=== PATIENT | male | born 1980 | race Caucasian/White ===

== ENCOUNTER 2017-05-12 21:51 | Emergency (ER) | payer MEDICAID, OTHER ==
[2017-05-12 22:06] VITALS: BP 137/95
--- NOTE | 2017-05-12 22:09 | ED Physician Documentation ---
PD HPI LOWER EXT INJURY - Stated complaint Stated Complaint: R FOOT PAIN - Chief complaint Chief Complaint: Ext Problem - History obtained from History obtained from: Patient - History of Present Illness PD HPI LOW EXT INJURY LOCATION: Right, Ankle (heel focally) Type of injury: Other (no unusual level of activity with feet/ankles in past few days.). No: Fall, Twist, Blunt / blow Timing - onset: Today Timing - details: Abrupt onset, Still present Worsened by: Palpating Associated symptoms: Discolored (some mild redness). No: Weakness, Numbness Similar symptoms before: No diagnosis (had similar about 5 weeks ago, not seen by provider and it took about 5-7 days to fully go away. Also no noted injury at that time with it either.) Review of Systems Constitutional: denies: Fever, Chills Skin: denies: Lesions, Abrasion (s), Laceration (s) Musculoskeletal: denies: Back pain PD PAST MEDICAL HISTORY - Past Medical History Cardiovascular: None Endocrine/Autoimmune: None Musculoskeletal: None Derm: None - Past Surgical History Past Surgical History: No - Present Medications Home Medications: Ambulatory Orders Medication Instructions Recorded Confirmed Dexamethasone [Decadron] 4 mg PO DAILY #5 tablet 05/12/17 HYDROcod/ACETAM 5/325 [[place] 5/325] 1 tab PO Q6H PRN #20 tablet 05/12/17 Naproxen [Naprosyn] 500 mg PO BID #20 tablet 05/12/17 - Allergies Allergies/Adverse Reactions: Allergies Allergy/AdvReac Type Severity Reaction Status Date / Time No Known Drug Allergies Allergy Verified 05/12/17 22:06 - Social History Does the pt smoke?: No Smoking Status: Never smoker Does the pt drink ETOH?: No PD ED PE NORMAL - Vitals Vital signs reviewed: Yes - General General: Alert and oriented X 3, No acute distress, Well developed/nourished - Derm Derm: Normal color, Warm and dry - Extremities Extremities: Other (right heel posteriorly with focal marked tenderness. Mild redness without warmth. No skin sores. Plantar aspect of foot/heel not tender. Calf not tender. ) - Neuro Neuro: No motor deficit, No sensory deficit Results - Vitals Vitals: Vital Signs - 24 hr 05/12/17 22:00 Temperature 36.3 C L Heart Rate 84 Respiratory 84 H Rate Blood Pressure 137/95 H O2 Saturation 97 Oxygen O2 Source Room air - Labs Labs: Laboratory Tests 05/12/17 05/12/17 22:58 22:58 ESR 5 Uric Acid 7.7 H - Rads (name of study) right ankle Radiology: Prelim report reviewed (normal), EMP read contemporaneously (small calcific spur noted posterior calcaneus in area of tenderness. ) PD MEDICAL DECISION MAKING - ED course Complexity details: reviewed results (small spur at back of heel on xray, so could be triggering tendonitis. Area is markedly tender with mild redness. So consider gout. Does not appear infection. ), considered differential, d/w patient Departure - Departure Disposition: 01 Home, Self Care Clinical Impression: Pain of right heel Condition: Stable Record reviewed to determine appropriate education?: Yes Instructions: ED Tendinitis Calcific, ED Arthritis Gout Follow-Up: [facility] [place], [place] [Provider Group] [facility] [Provider Group] [facility] [Provider Group] Prescriptions: Dexamethasone [Decadron] 4 mg PO DAILY #5 tablet Naproxen [Naprosyn] 500 mg PO BID #20 tablet HYDROcod/ACETAM 5/325 [[place] 5/325] 1 tab PO Q6H PRN #20 tablet PRN Reason: Pain Comments: There is a small spur at the area where you are hurting, and this could promote episodic tendinitis. Your uric acid level blood test is slightly above normal and so could consider the idea of gout. The heel is not a common place for gout but still potential. For now use naproxen twice daily for the next 7 days. Add dexamethasone daily for 5 days. Additionally use Tylenol or hydrocodone as needed for pain. Modify activity as needed for comfort. Recheck if not improving over the next few days. I gave a couple of clinic numbers down in the [place] area. You could also consult a foot and ankle specialist regarding the spurs. Discharge Date/Time: 05/12/17 23:58
[2017-05-12] MEDS ORDERED: oxyCOD/ACETAMIN 5 MG/325 MG TABLET PO STA (22:37)
[2017-05-12] MEDS ORDERED: IBUPROFEN 600 MG TABLET PO STA (22:37)
[2017-05-12] MEDS ORDERED: DEXAMETHASONE 10 MG/ML VIAL PO STA (22:37)
--- NOTE | 2017-05-12 23:23 | XRAY Preliminary Report ---
Exam: XR Ankle 3 View RT IMPRESSION: Normal ankle radiography. [facility] SITE ID: [id number]
--- NOTE | 2017-05-12 23:25 | XRAY Report ---
EXAM: RIGHT ANKLE RADIOGRAPHY EXAM DATE: 05/12/2017 11:00 PM. CLINICAL HISTORY: Heel pain for 1-2 days. COMPARISON: None. TECHNIQUE: 3 views. FINDINGS: Bones: Normal. No fractures or bone lesions. Joints: Normal. No effusion. No subluxations. The ankle mortise is normally aligned. Soft Tissues: Normal. No soft tissue swelling. IMPRESSION: Normal ankle radiography. [facility] Referring Provider Line: [phone] SITE ID: [id number]
[2017-05-12] MEDS ORDERED: oxyCOD/ACETAMIN 5 MG/325 MG TABLET PO ONE (23:26)
[2017-05-12] MEDS ORDERED: DEXAMETHASONE 10 MG/ML VIAL ONE (23:26)
[2017-05-12] MEDS ORDERED: IBUPROFEN 600 MG TABLET PO ONE (23:27)
[2017-05-12] MEDS ORDERED: CHERRY SYRUP 10 ML UDC PO ONE (23:27)
== END 2017-05-12 23:58 | disposition home or self-care (01) ==
LOC: ED 21:51
DX: M79.671 Pain in right foot (principal); M77.51 Other enthesopathy of right foot and ankle
CPT/HCPCS: 36415; 73610; 84550; 85651; 99283; A9270

== ENCOUNTER 2017-10-06 18:07 | Emergency (ER) | payer MEDICAID ==
[2017-10-06] MEDS ORDERED: OSELTAMIVIR 75 MG CAPSULE PO STA (19:02)
--- NOTE | 2017-10-06 19:04 | ED Physician Documentation ---
PD HPI URI - Stated complaint Stated Complaint: FLU LIKE SYMPTOMS - Chief complaint Chief Complaint: Resp - History obtained from History obtained from: Patient - History of Present Illness Timing - onset: Other (A little over 24 hours of rhinorrhea, fevers, body aches , productive cough. His daughter also has influenza A diagnosed today. No recent travel.) Review of Systems Constitutional: reports: Fever, Chills, Myalgias, Fatigue Ears: denies: Ear pain Nose: reports: Rhinorrhea / runny nose. denies: Sinus pressure / pain Throat: reports: Sore throat Respiratory: reports: Cough. denies: Dyspnea PD PAST MEDICAL HISTORY - Past Medical History Cardiovascular: None Endocrine/Autoimmune: None Musculoskeletal: None Derm: None - Past Surgical History Past Surgical History: No - Present Medications Home Medications: Ambulatory Orders Medication Instructions Recorded Confirmed Dexamethasone [Decadron] 4 mg PO DAILY #5 tablet 05/12/17 HYDROcod/ACETAM 5/325 [[place] 5/325] 1 tab PO Q6H PRN #20 tablet 05/12/17 Naproxen [Naprosyn] 500 mg PO BID #20 tablet 05/12/17 Ibuprofen [Motrin] 800 mg PO Q8H PRN #30 tablet 10/06/17 Oseltamivir [Tamiflu] 75 mg PO BID #10 capsule 10/06/17 - Allergies Allergies/Adverse Reactions: Allergies Allergy/AdvReac Type Severity Reaction Status Date / Time No Known Drug Allergies Allergy Verified 05/12/17 22:06 - Social History Does the pt smoke?: No Smoking Status: Never smoker Does the pt drink ETOH?: No Does the pt have substance abuse?: No - Immunizations Immunizations are current?: Yes - POLST Patient has POLST: No PD ED PE NORMAL - Vitals Vital signs reviewed: Yes - General General: Alert and oriented X 3, No acute distress - HEENT HEENT: PERRL, EOMI, Ears normal, Moist mucous membranes, Pharynx benign - Neck Neck: Supple, no meningeal sign, No bony TTP - Cardiac Cardiac: RRR, No murmur - Respiratory Respiratory: No respiratory distress, Clear bilaterally - Derm Derm: No rash - Neuro Neuro: Alert and oriented X 3, Normal speech Results - Vitals Vitals: Vital Signs - 24 hr 10/06/17 18:11 Temperature 37.0 C Heart Rate 110 H Respiratory 16 Rate Blood Pressure 123/85 H O2 Saturation 96 Oxygen O2 Source Room air - Labs Labs: Laboratory Tests 10/06/17 18:30 Influenza A (Rapid) POSITIVE H Influenza B (Rapid) Negative Influenza Types A,B Ag + H Departure - Departure Disposition: 01 Home, Self Care Clinical Impression: Influenza A Condition: Good Record reviewed to determine appropriate education?: Yes Instructions: Medication: Tamiflu (Oseltamivir), ED Flu Prescriptions: Ibuprofen [Motrin] 800 mg PO Q8H PRN #30 tablet PRN Reason: PAIN &/OR FEVER Oseltamivir [Tamiflu] 75 mg PO BID #10 capsule Comments: Call your doctor to arrange a follow-up appointment, make the next available appointment. In the interim, return anytime if worse or if new symptoms develop. Your blood pressure was elevated today on check into the emergency department. This does not mean that you have hypertension, it is a common phenomenon to come to the emergency department and have elevated blood pressure. I recommend that you see your primary care physician within the week to have it rechecked when you are feeling better.
[2017-10-06 19:08] VITALS: BP 143/95
== END 2017-10-06 19:12 | disposition home or self-care (01) ==
LOC: ED 18:07
DX: J09.X2 Influenza due to identified novel influenza A virus with other respiratory manifestations (principal); R03.0 Elevated blood-pressure reading, without diagnosis of hypertension
CPT/HCPCS: 87275; 87276; 99283; A9270

== ENCOUNTER 2018-09-05 11:24 | Outpatient (CLI) | payer MEDICAID ==
[2018-09-05 18:55] LABS: BASOPHILS % (AUTO) 0.7 %; EOSINOPHILS # (AUTO) 0.1 10^3/uL (0.0-0.7); EOSINOPHILS % (AUTO) 2.2 %; HGB - HEMOGLOBIN 16.3 g/dL (14.0-18.0); LYMPHOCYTES # (AUTO) 1.7 10^3/uL (1.5-3.5); MEAN CORPUSCULAR HEMOGLOBIN 29.8 pg (27.0-31.0); MEAN CORPUSCULAR HGB CONC 32.7 g/dL (32.0-36.0); MEAN CORPUSCULAR VOLUME 91.1 fL (80.0-94.0); MEAN PLATELET VOLUME 7.9 fL (7.4-11.4); MONOCYTES # (AUTO) 0.5 10^3/uL (0.0-1.0); MONOCYTES % (AUTO) 7.8 %; NEUTROPHILS # (AUTO) 4.3 10^3/uL (1.5-6.6); NEUTROPHILS % (AUTO) 64.3 %; PLT - PLATELET COUNT 208 10^3/uL (130-450); RED BLOOD COUNT 5.46 10^6/uL (4.70-6.10); RED CELL DISTRIBUTION WIDTH 14.6 % (12.0-15.0); WHITE BLOOD COUNT 6.7 x10^3/uL (4.8-10.8)
[2018-09-05 19:21] LABS: ALBUMIN 4.7 g/dL (3.2-5.5); ALBUMIN/GLOBULIN RATIO 1.4 (1.0-2.2); ALKALINE PHOSPHATASE 145 IU/L (42-121); ALT ALANINE AMINOTRANSFERASE 423 IU/L (10-60); AST ASPARTATE AMINOTRANSFERASE 111 IU/L (10-42); BILIRUBIN,TOTAL 0.9 mg/dL (0.2-1.0); BUN - BLOOD UREA NITROGEN 11 mg/dL (6-20); CALCIUM 9.3 mg/dL (8.5-10.3); CARBON DIOXIDE - CO2 29 mmol/L (21-32); CHLORIDE 102 mmol/L (101-111); CHOLESTEROL 137 mg/dL; CREATININE 1.2 mg/dL (0.6-1.2); GFR - MDRD 68 (>89); GLUCOSE 98 mg/dL (70-100); HDL CHOLESTEROL 45 mg/dL; LDL CHOLESTEROL,CALCULATED 73 mg/dL; LDL/HDL RATIO 1.6 (<3.6); SODIUM 139 mmol/L (135-145); VLDL CHOLESTEROL 19 mg/dL
== END 2018-09-05 11:25 | disposition home or self-care (01) ==
LOC: LAB.N 11:24
PROVIDERS: ATTEND Nurse Practitioner
DX: R03.0 Elevated blood-pressure reading, without diagnosis of hypertension (principal)
CPT/HCPCS: 36415; 80053; 80061; 83721; 85025

== ENCOUNTER 2018-09-19 09:20 | Outpatient (CLI) | payer MEDICAID ==
--- NOTE | 2018-09-19 16:03 | XRAY Report ---
Reason: SHOULDER JOINT PAIN,LEFT AND RIGHT Procedure Date: 09/19/2018 Accession Number: [id number] / [id number] Procedure: XR - Shoulder 3 View BILAT CPT Code: FULL RESULT: Bilateral Shoulder Radiography EXAM DATE: 09/19/2018 09:30 AM. CLINICAL HISTORY: Shoulder joint pain, left and right. COMPARISON: None. TECHNIQUE: 3 views each. FINDINGS: Right: Bones: Normal. No fracture or bone lesion. Joints: The glenohumeral and acromioclavicular joints are normal. Soft tissues: The visualized hemithorax is unremarkable. No soft tissue swelling. Left: Bones: Normal. No fracture or bone lesion. Joints: The glenohumeral and acromioclavicular joints are normal with the exception of mild degenerative changes of the AC joint. Soft tissues: The visualized hemithorax is unremarkable. No soft tissue swelling. IMPRESSION: Mild degenerative changes of the left AC joint, otherwise normal bilateral shoulder radiographs. [facility]
== END 2018-09-19 09:21 | disposition home or self-care (01) ==
LOC: DI 09:20
PROVIDERS: ATTEND Nurse Practitioner
DX: M19.012 Primary osteoarthritis, left shoulder (principal); M25.511 Pain in right shoulder

== ENCOUNTER 2018-10-06 14:54 | Outpatient (CLI) | payer MEDICAID ==
[2018-10-06 19:24] LABS: ALBUMIN 4.6 g/dL (3.2-5.5); ALBUMIN/GLOBULIN RATIO 1.4 (1.0-2.2); BILIRUBIN,TOTAL 0.7 mg/dL (0.2-1.0); CALCIUM 8.9 mg/dL (8.5-10.3); CREATININE 1.1 mg/dL (0.6-1.2)
== END 2018-10-06 23:59 | disposition home or self-care (01) ==
LOC: LAB.N 14:54
PROVIDERS: ATTEND Nurse Practitioner
DX: R79.89 Other specified abnormal findings of blood chemistry (principal)
CPT/HCPCS: 36415; 80053

== ENCOUNTER 2019-01-02 11:58 | Outpatient (CLI) | payer MEDICAID ==
--- NOTE | 2019-01-02 13:28 | XRAY Report ---
REVISED: THIS REPORT WAS ORIGINALLY SIGNED ON 01/02/2019 @ 1330. THE REPORT IS MOVED TO THE CORRECT ACCOUNT ON 02/02/2019. Reason: SHOULDER PAIN Procedure Date: 01/02/2019 Accession Number: [id number] / [id number] Procedure: XRN - Cervical Spine 2 View CPT Code: FULL RESULT: EXAM: CERVICAL SPINE RADIOGRAPHY EXAM DATE: 01/02/2019 12:23 PM. CLINICAL HISTORY: Shoulder pain. COMPARISONS: None. TECHNIQUE: 3 views. FINDINGS: Alignment: Normal. No spondylolisthesis or scoliosis. Bones: The cervical vertebral bodies and posterior elements are well visualized from the skull base through C7-T1. No fractures or bone lesions. Disks: Normal. Disk heights are maintained. Facets: No degenerative disease. Soft Tissues: Normal. No prevertebral soft tissue swelling. The visualized lung apices are clear. IMPRESSION: Normal cervical spine radiography. [facility] MTDD
== END 2019-01-02 23:59 | disposition home or self-care (01) ==
LOC: DI.N 11:58
PROVIDERS: ATTEND Nurse Practitioner
DX: M54.12 Radiculopathy, cervical region (principal)
CPT/HCPCS: 72040

== ENCOUNTER 2019-02-07 10:17 | Outpatient (CLI) | payer MEDICAID ==
--- NOTE | 2019-02-07 11:37 | MRI Report ---
Reason: SHOULDER JOINT PAIN,LEFT Procedure Date: 02/07/2019 Accession Number: [id number] / [id number] Procedure: MRI - Shoulder LT W/O CPT Code: FULL RESULT: EXAM: LEFT SHOULDER MRI WITHOUT CONTRAST EXAM DATE: 02/07/2019 11:23 AM. CLINICAL HISTORY: Left shoulder pain for several months. COMPARISON: SHOULDER 3 VIEW BILAT 09/19/2018 9:23 AM. TECHNIQUE: Multiplanar, multisequence T1-weighted and fluid-sensitive sequences of the shoulder without contrast. Other: None. FINDINGS: Acromioclavicular Region: The acromion is type II. Small erosion or cyst distal anterior clavicle 3 mm (image 28 series 401). The coracoacromial and coracoclavicular ligaments are intact. No subacromial/subdeltoid bursal fluid. Glenohumeral Region: No subluxation. No effusion or loose bodies. The articular cartilage is unremarkable. The glenohumeral ligaments and joint capsule are unremarkable. Bone Marrow: No fracture, marrow edema or bone lesions. Labrum: The labrum is unremarkable on this nonarthrographic study. Musculature/Rotator Cuff: The subscapularis, supraspinatus, infraspinatus, and teres minor tendons are intact. No edema or fatty atrophy. Intermediate signal undersurface distal infraspinatus tendon. Biceps Tendon: The long head of the biceps tendon and biceps martha are intact. Other: The subcutaneous tissues are unremarkable. IMPRESSION: No MRI abnormalities in the shoulder. [facility]
== END 2019-02-07 10:18 | disposition home or self-care (01) ==
LOC: DI 10:17
PROVIDERS: ATTEND Orthopaedic Surgery Sports Medicine
DX: M25.512 Pain in left shoulder (principal)

== ENCOUNTER 2019-03-30 18:52 | Emergency (ER) | payer MEDICAID ==
[2019-03-30] MEDS ORDERED: diphenhydrAMINE INJ 50 MG/ML VIAL IVP STA (19:15)
[2019-03-30] MEDS ORDERED: KETOROLAC 30 MG/ML VIAL IVP STA (19:15)
[2019-03-30] MEDS ORDERED: ACETAMINOPHEN 325 MG TABLET PO STA (19:15)
[2019-03-30] MEDS ORDERED: ONDANSETRON 4 MG/2 ML VIAL IVP STA (19:15)
[2019-03-30] MEDS ORDERED: SODIUM CHLORIDE 0.9% 1,000 ML IV ONE (19:15)
--- NOTE | 2019-03-30 19:21 | ED Physician Documentation ---
History of Present Illness - Stated complaint Stated Complaint: DIZZY - Chief complaint Chief Complaint: Fever - History obtained from History obtained from: Patient - History of Present Illness Timing: Last night (Starting last night he had an increase in his chronic tinnitus associated with bilateral sinus pain, body aches all over, sore throat and dizziness. He feels nauseous but has not vomited.) Review of Systems Constitutional: reports: Fever, Chills, Myalgias, Fatigue Ears: reports: Ear pain Nose: reports: Rhinorrhea / runny nose, Congestion Throat: reports: Sore throat Respiratory: reports: Dyspnea. denies: Cough GI: reports: Nausea. denies: Abdominal Pain PD PAST MEDICAL HISTORY - Past Medical History Cardiovascular: None Endocrine/Autoimmune: None Musculoskeletal: None Derm: None - Past Surgical History Past Surgical History: No - Present Medications Home Medications: Ambulatory Orders Medication Instructions Recorded Confirmed HYDROcod/ACETAM 5/325 [[place] 5/325] 1 tab PO Q6H PRN #20 tablet 05/12/17 Naproxen [Naprosyn] 500 mg PO BID #20 tablet 05/12/17 dexAMETHasone [Decadron] 4 mg PO DAILY #5 tablet 05/12/17 Ibuprofen [Motrin] 800 mg PO Q8H PRN #30 tablet 10/06/17 Oseltamivir [Tamiflu] 75 mg PO BID #10 capsule 10/06/17 Amox/Clav 875/125 [Augmentin] 1 each PO Q12H #20 tablet 03/30/19 Hydrocodone/Acetaminophen 1 - 2 each PO Q6H PRN #10 tablet 03/30/19 [Hydrocodon-Acetaminophen 5-325] - Allergies Allergies/Adverse Reactions: Allergies Allergy/AdvReac Type Severity Reaction Status Date / Time No Known Drug Allergies Allergy Verified 03/30/19 18:57 - Social History Does the pt smoke?: No Smoking Status: Never smoker Does the pt drink ETOH?: No Does the pt have substance abuse?: No - Immunizations Immunizations are current?: Yes - POLST Patient has POLST: No PD ED PE NORMAL - Vitals Vital signs reviewed: Yes - General General: Alert and oriented X 3, No acute distress - HEENT HEENT: PERRL, EOMI, Ears normal, Moist mucous membranes, Pharynx benign, Dentit ion benign - Neck Neck: Supple, no meningeal sign, No bony TTP - Cardiac Cardiac: RRR, No murmur - Respiratory Respiratory: No respiratory distress, Clear bilaterally - Abdomen Abdomen: Normal bowel sounds, Soft, Non tender - Derm Derm: Normal color, Warm and dry - Neuro Neuro: Alert and oriented X 3, Normal speech, Other Eye Opening: Spontaneous Motor: Obeys Commands Verbal: Oriented GCS Score: 15 - Psych Psych: Normal mood, Normal affect Results - Vitals Vitals: Vital Signs - 24 hr 03/30/19 18:54 Temperature 39.1 C H Heart Rate 123 H Respiratory 22 Rate Blood Pressure 121/83 H O2 Saturation 100 Oxygen O2 Source Room air - Labs Labs: Laboratory Tests 03/30/19 03/30/19 03/30/19 19:40 19:40 19:42 WBC 13.2 H RBC 5.55 Hgb 16.4 Hct 48.7 MCV 87.7 MCH 29.5 MCHC 33.7 RDW 13.2 Plt Count 210 MPV 10.0 Neut # (Auto) 11.2 H Lymph # (Auto) 1.0 L [place] # (Auto) 0.8 Eos # (Auto) 0.0 Baso # (Auto) 0.0 Absolute Nucleated RBC 0.00 Nucleated RBC % 0.0 Sodium Potassium Chloride Carbon Dioxide Anion Gap BUN Creatinine Estimated GFR (MDRD) Glucose Calcium Total Bilirubin AST ALT Alkaline Phosphatase Total Protein Albumin Globulin Albumin/Globulin Ratio Lipase Influenza A (Rapid) Negative Influenza B (Rapid) Negative Group A Strep Rapid POSITIVE H 03/30/19 19:42 WBC RBC Hgb Hct MCV MCH MCHC RDW Plt Count MPV Neut # (Auto) Lymph # (Auto) [place] # (Auto) Eos # (Auto) Baso # (Auto) Absolute Nucleated RBC Nucleated RBC % Sodium 139 Potassium 3.8 Chloride 103 Carbon Dioxide 24 Anion Gap 12.0 BUN 11 Creatinine 1.5 H Estimated GFR (MDRD) 52 L Glucose 103 H Calcium 10.0 Total Bilirubin 1.6 H AST 99 H ALT 144 H Alkaline Phosphatase 130 H Total Protein 9.0 H Albumin 5.0 Globulin 4.0 Albumin/Globulin Ratio 1.3 Lipase 24 Influenza A (Rapid) Influenza B (Rapid) Group A Strep Rapid PD MEDICAL DECISION MAKING - ED course ED course: This is a 38-year-old gentleman who resents with either a viral or bacterial illness with high fever today. His neck is supple. He is found on work-up to have strep throat and evidence of sinusitis on CT. He was feeling better after medications here and his neck remained supple with normal mental status. Of note his liver enzymes are elevated, review of old records show that this is kind of a chronic issue where his liver enzymes go up and down. He says he had a thorough work-up for this with negative hepatitis testing in the past. Departure - Departure Disposition: 01 Home, Self Care Clinical Impression: Strep pharyngitis, Elevated liver enzymes Sinusitis Qualifiers: Sinusitis location: maxillary Chronicity: acute Recurrence: non-recurrent Qualified Code(s): J01.00 - Acute maxillary sinusitis, unspecified Condition: Good Record reviewed to determine appropriate education?: Yes Instructions: ED Sinusitis Abx Tx, ED Strep Pharyngitis Conf Prescriptions: Amox/Clav 875/125 [Augmentin] 1 each PO Q12H #20 tablet Hydrocodone/Acetaminophen [Hydrocodon-Acetaminophen 5-325] 1 - 2 each PO Q6H PRN #10 tablet PRN Reason: pain Comments: As discussed your liver enzymes are elevated, but this seems to be a chronic issue. Recheck with your doctor on this. Return if worse. Follow-up with your doctor next week. Do not drink or drive while taking prescription pain medication. Drink plenty of fluids.
--- NOTE | 2019-03-30 19:33 | CT Report ---
Reason: headache, dizzy Procedure Date: 03/30/2019 Accession Number: [id number] / [id number] Procedure: CT - HEAD WO CPT Code: FULL RESULT: EXAM: CT HEAD EXAM DATE: 03/30/2019 07:24 PM. CLINICAL HISTORY: Headache, dizzy. Pain behind the right eye. Sinus congestion. COMPARISON: None. TECHNIQUE: Multiaxial CT images were obtained from the foramen magnum to the vertex. Reformats: Sagittal and coronal. IV contrast: None. In accordance with CT protocol optimization, one or more of the following dose reduction techniques were utilized for this exam: automated exposure control, adjustment of mA and/or KV based on patient size, or use of iterative reconstructive technique. FINDINGS: Parenchyma: No intraparenchymal hemorrhage. No evidence of mass, midline shift, or CT findings of infarction. [place]-white differentiation is distinct. Extraaxial Spaces: Normal for age. No subdural or epidural collections identified. Ventricles: Normal in size and position. Sinuses and Orbits: Orbits are symmetric. Incompletely visualized right maxillary sinus showing marked mucosal thickening. Moderate mucosal thickening and right ethmoid air cells. The other visualized paranasal sinuses are clear as are mastoids and middle ears. Bones: No evidence of fracture or calvarial defect. Other: None. IMPRESSION: 1. Marked right maxillary sinus mucosal thickening, incompletely visualized. Moderate right ethmoid sinus mucosal thickening. The findings suggest sinusitis. 2. Normal noncontrast CT of the brain. [facility]
[2019-03-30 20:02] LABS: BASOPHILS % (AUTO) 0.3 %; EOSINOPHILS % (AUTO) 0.1 %; HGB - HEMOGLOBIN 16.4 g/dL (14.0-18.0); LYMPHOCYTES % (AUTO) 7.6 %; MEAN CORPUSCULAR HEMOGLOBIN 29.5 pg (27.0-31.0); MEAN CORPUSCULAR HGB CONC 33.7 g/dL (32.0-36.0); MEAN CORPUSCULAR VOLUME 87.7 fL (80.0-94.0); MONOCYTES # (AUTO) 0.8 10^3/uL (0.0-1.0); MONOCYTES % (AUTO) 6.2 %; NEUTROPHILS # (AUTO) 11.2 10^3/uL (1.5-6.6); PLT - PLATELET COUNT 210 10^3/uL (130-450); RED BLOOD COUNT 5.55 10^6/uL (4.70-6.10); RED CELL DISTRIBUTION WIDTH 13.2 % (12.0-15.0); WHITE BLOOD COUNT 13.2 x10^3/uL (4.8-10.8)
[2019-03-30] MEDS ORDERED: HYDROcod/ACETAM 5/325 MG TABLET PO STA (20:11)
[2019-03-30 20:14] LABS: ALBUMIN/GLOBULIN RATIO 1.3 (1.0-2.2); BILIRUBIN,TOTAL 1.6 mg/dL (0.2-1.0); CREATININE 1.5 mg/dL (0.6-1.2)
[2019-03-30] MEDS ORDERED: AMOX/CLAV 875 MG/125 MG TABLET PO STA (20:47)
[2019-03-30] MEDS ORDERED: HYDROcod/ACET 5/325 Prepack 4 PO STA (20:47)
[2019-03-30 20:56] VITALS: BP 108/73
== END 2019-03-30 20:57 | disposition home or self-care (01) ==
LOC: ED 18:52
DX: J02.0 Streptococcal pharyngitis (principal); J01.00 Acute maxillary sinusitis, unspecified; R74.8 Abnormal levels of other serum enzymes
CPT/HCPCS: 70450; 80053; 83690; 85025; 87275; 87276; 87430; 96361; 96374; 96375; 99282; 99284; A9270; J1200

== ENCOUNTER 2019-05-08 15:37 | Outpatient (CLI) | payer MEDICAID ==
[2019-05-08 18:56] LABS: ALBUMIN 4.3 g/dL (3.2-5.5); ALBUMIN/GLOBULIN RATIO 1.4 (1.0-2.2); BILIRUBIN,TOTAL 0.8 mg/dL (0.2-1.0); CALCIUM 9.1 mg/dL (8.5-10.3); CREATININE 1.1 mg/dL (0.6-1.2); TOTAL PROTEIN 7.3 g/dL (6.7-8.2)
[2019-05-09 12:51] LABS: HEPATITIS C ANTIBODY NON-REACTIVE (NON-REACTIVE)
== END 2019-05-08 23:59 | disposition home or self-care (01) ==
LOC: LAB.N 15:37
PROVIDERS: ATTEND Nurse Practitioner Gerontology
DX: R79.89 Other specified abnormal findings of blood chemistry (principal)
CPT/HCPCS: 36415; 80053; 86803

== ENCOUNTER 2021-08-10 16:33 | Emergency (ER) | payer MEDICAID, OTHER ==
[2021-08-10] MEDS ORDERED: SODIUM CHLORIDE 0.9% 1,000 ML IV STA (18:55)
--- NOTE | 2021-08-10 18:56 | ED Physician Documentation ---
History of Present Illness - Stated complaint Stated Complaint: C+,FEVER,NOT EATING,BODY ACHES - Chief complaint Chief Complaint: Fever - History obtained from History obtained from: Patient - History of Present Illness Timing: How many weeks ago (1) Pain level max: 0 Pain level now: 0 - Additonal information Additional information: Patient is a 40-year-old male who presents to the emergency department who states he tested positive for Covid last week. Symptoms began about 1 week ago. He states continued cough, fevers and body aches since that time. Nothing makes it better or worse. He did not receive his Covid vaccination. He took a antigen test. He states the fevers break with Motrin and Tylenol but then they come back. Complains of feeling tired and lightheaded. Review of Systems Ten Systems: 10 systems reviewed and negative Constitutional: reports: Fever (102-103) Nose: reports: Rhinorrhea / runny nose, Congestion Throat: denies: Sore throat Cardiac: denies: Chest pain / pressure, Palpitations Respiratory: reports: Cough (dry) GI: denies: Abdominal Pain, Nausea, Vomiting, Diarrhea : denies: Dysuria, Frequency, Hesitancy Skin: denies: Rash Musculoskeletal: denies: Neck pain, Back pain Neurologic: reports: Generalized weakness. denies: Focal weakness, Numbness, Headache PD PAST MEDICAL HISTORY - Past Medical History Past Medical History: Yes Cardiovascular: None Respiratory: None Neuro: None Endocrine/Autoimmune: None GI: None : None HEENT: None Psych: Post traumatic stress disorder Musculoskeletal: Osteoarthritis Derm: None - Past Surgical History Past Surgical History: No - Present Medications Home Medications: Ambulatory Orders Medication Instructions Recorded Confirmed Ibuprofen [Motrin] 800 mg PO Q8H PRN #30 tablet 10/06/17 08/10/21 - Allergies Allergies/Adverse Reactions: Allergies Allergy/AdvReac Type Severity Reaction Status Date / Time No Known Drug Allergies Allergy Verified 08/10/21 18:18 - Social History Does the pt smoke?: No Smoking Status: Never smoker Does the pt drink ETOH?: No Does the pt have substance abuse?: No - Immunizations Immunizations are current?: No Immunizations: Other immun not current - POLST Patient has POLST: No PD ED PE NORMAL - Vitals Vital signs reviewed: Yes - General General: Alert and oriented X 3, No acute distress, Well developed/nourished - HEENT HEENT: Atraumatic, PERRL, Ears normal, Moist mucous membranes - Neck Neck: Supple, no meningeal sign - Cardiac Cardiac: RRR, Strong equal pulses - Respiratory Respiratory: No respiratory distress, Clear bilaterally - Abdomen Abdomen: Soft, Non tender, Non distended - Derm Derm: Warm and dry - Extremities Extremities: No edema - Neuro Neuro: Alert and oriented X 3 - Psych Psych: Normal mood, Normal affect Results - Vitals Vitals: Vital Signs - 24 hr 08/10/21 08/10/21 08/10/21 18:20 19:02 19:30 Temperature 38.7 C H 38.4 C H Heart Rate 112 H 112 H 108 H Respiratory 16 12 18 Rate Blood Pressure 149/95 H 153/91 H 163/91 H O2 Saturation 97 95 96 Oxygen O2 Source Room air - Labs Labs: Laboratory Tests 08/10/21 08/10/21 08/10/21 18:35 18:35 18:53 WBC 4.5 L RBC 5.03 Hgb 15.2 Hct 44.7 MCV 88.9 MCH 30.2 MCHC 34.0 RDW 13.3 Plt Count 145 MPV 9.5 Neut # (Auto) 3.5 Lymph # (Auto) 0.7 L Grainger # (Auto) 0.2 Eos # (Auto) 0.0 Baso # (Auto) 0.0 Absolute Nucleated RBC 0.00 Nucleated RBC % 0.0 Sodium 137 Potassium 3.5 Chloride 97 L Carbon Dioxide 30 Anion Gap 10.0 BUN 11 Creatinine 1.2 Estimated GFR (MDRD) 67 L Glucose 103 H Calcium 8.8 Total Bilirubin 0.6 AST 33 ALT 77 H Alkaline Phosphatase 102 Total Protein 7.2 Albumin 4.1 Globulin 3.1 Albumin/Globulin Ratio 1.3 Nasal Adenovirus (PCR) NOT DETECTED Nasal B. parapertussis DNA (PCR) NOT DETECTED Nasal Coronavir 229E PCR NOT DETECTED Nasal Coronavir HKU1 PCR NOT DETECTED Nasal Coronavir NL63 PCR NOT DETECTED Nasal Coronavir OC43 PCR NOT DETECTED Nasal Enterovir/Rhinovir PCR NOT DETECTED Nasal Influenza B PCR NOT DETECTED Nasal Influenza A PCR NOT DETECTED Nasal Parainfluen 1 PCR NOT DETECTED Nasal Parainfluen 2 PCR NOT DETECTED Nasal Parainfluen 3 PCR NOT DETECTED Nasal Parainfluen 4 PCR NOT DETECTED Nasal RSV (PCR) NOT DETECTED Nasal B.pertussis DNA PCR NOT DETECTED Nasal C.pneumoniae (PCR) NOT DETECTED Toney Human Metapneumo PCR NOT DETECTED Nasal M.pneumoniae (PCR) NOT DETECTED Nasal SARS-CoV-2 (PCR) DETECTED A PD MEDICAL DECISION MAKING - ED course Complexity details: reviewed results, re-evaluated patient, considered differential, d/w patient ED course: Lungs are clear to auscultation bilaterally. No significant lab abnormalities. PCR is positive for Covid. Feels better after IV fluids. We did discuss monoclonal antibody therapy, the patient is interested in this and was given the information handout to review tonight. The pharmacist is not here so the monoclonal antibody therapy is not available tonight. If he chooses to take the monoclonal antibodies, will return tomorrow. Patient is well-appearing, nontoxic. No indication for x-ray at this time. No hypoxia. Patient counseled regarding signs and symptoms for which I believe and urgent re-evaluation would be necessary. Patient with good understanding of and agreement to plan and is comfortable going home at this time This document was made in part using voice recognition software. While efforts are made to proofread this document, sound alike and grammatical errors may occur. Departure - Departure Disposition: 01 Home, Self Care Clinical Impression: COVID Condition: Good Instructions: COVID-19 [facility], COVID-19 [facility] Department Statement Follow-Up: your,doctor as needed [Other] Comments: You have tested positive for Covid tonight. If you choose to receive monoclonal antibody therapy, you can return tomorrow after 9 AM and before 3 PM. The pharmacist needs to be here to mix the monoclonal antibody therapy. Follow-up with your doctor for further care. Drink plenty of fluids and rest. Return if you worsen.
[2021-08-10 19:00] LABS: BASOPHILS % (AUTO) 0.2 %; HCT - HEMATOCRIT 44.7 % (42.0-52.0); HGB - HEMOGLOBIN 15.2 g/dL (14.0-18.0); LYMPHOCYTES # (AUTO) 0.7 10^3/uL (1.5-3.5); LYMPHOCYTES % (AUTO) 15.5 %; MEAN CORPUSCULAR HEMOGLOBIN 30.2 pg (27.0-31.0); MEAN CORPUSCULAR VOLUME 88.9 fL (80.0-94.0); MEAN PLATELET VOLUME 9.5 fL (7.4-11.4); MONOCYTES # (AUTO) 0.2 10^3/uL (0.0-1.0); MONOCYTES % (AUTO) 4.9 %; NEUTROPHILS # (AUTO) 3.5 10^3/uL (1.5-6.6); PLT - PLATELET COUNT 145 10^3/uL (130-450); RED BLOOD COUNT 5.03 10^6/uL (4.70-6.10); RED CELL DISTRIBUTION WIDTH 13.3 % (12.0-15.0); WHITE BLOOD COUNT 4.5 x10^3/uL (4.8-10.8)
[2021-08-10 19:11] LABS: ALBUMIN 4.1 g/dL (3.2-5.5); ALBUMIN/GLOBULIN RATIO 1.3 (1.0-2.2); BILIRUBIN,TOTAL 0.6 mg/dL (0.2-1.0); CALCIUM 8.8 mg/dL (8.5-10.3); CREATININE 1.2 mg/dL (0.6-1.2); POTASSIUM 3.5 mmol/L (3.5-5.0); TOTAL PROTEIN 7.2 g/dL (6.7-8.2)
[2021-08-10 20:08] LABS: CORONAVIRUS 229E-RESP PCR NOT DETECTED; CORONAVIRUS HKU1-RESP PCR NOT DETECTED; CORONAVIRUS NL63-RESP PCR NOT DETECTED; CORONAVIRUS OC43-RESP PCR NOT DETECTED
[2021-08-10 20:09] LABS: B. PARAPERTUSSIS- RESP PCR PAN NOT DETECTED; B. PERTUSSIS- RESP PCR PANEL NOT DETECTED; C. PNEUMONIAE- RESP PCR PANEL NOT DETECTED; HUMAN METAPNEUMOVIRUS NOT DETECTED; INFLUENZA A- RESP PCR PANEL NOT DETECTED; INFLUENZA B - RESP PCR PANEL NOT DETECTED; M. PNEUMONIAE- RESP PCR PANEL NOT DETECTED; PARAINFLUENZA VIRUS 1 NOT DETECTED; PARAINFLUENZA VIRUS 2 NOT DETECTED; PARAINFLUENZA VIRUS 3 NOT DETECTED; PARAINFLUENZA VIRUS 4 NOT DETECTED; RHINOVIRUS/ENTEROVIRUS NOT DETECTED; RSV- RESP PCR PANEL NOT DETECTED; SARS-CoV-2 -RESP PCR PANEL DETECTED
[2021-08-10 21:04] VITALS: BP 160/82
== END 2021-08-10 20:59 | disposition home or self-care (01) ==
LOC: ED 16:33
DX: U07.1 COVID-19 (principal)
CPT/HCPCS: 0202U; 36415; 80053; 85025; 99283

== ENCOUNTER 2021-08-11 12:34 | Emergency (ER) | payer OTHER ==
--- NOTE | 2021-08-11 13:14 | ED Physician Documentation ---
History of Present Illness - Stated complaint Stated Complaint: Covid+ - Chief complaint Chief Complaint: General - History obtained from History obtained from: Patient, Family - History of Present Illness Timing: How many days ago (7) Pain level max: 0 Pain level now: 0 - Additonal information Additional information: Patient is a 40-year-old male who presents to the emergency department with continued Covid symptoms. Seen here last night. He returns today for monoclonal antibody therapy. He is unvaccinated. Fevers have improved Review of Systems Constitutional: reports: Fever. denies: Myalgias Respiratory: reports: Cough GI: denies: Vomiting Skin: denies: Rash PD PAST MEDICAL HISTORY - Past Medical History Cardiovascular: None Respiratory: None Neuro: None Endocrine/Autoimmune: None GI: None : None HEENT: None Psych: Post traumatic stress disorder Musculoskeletal: Osteoarthritis Derm: None - Past Surgical History Past Surgical History: No - Present Medications Home Medications: Ambulatory Orders Medication Instructions Recorded Confirmed No Known Home Medications 08/11/21 08/11/21 - Allergies Allergies/Adverse Reactions: Allergies Allergy/AdvReac Type Severity Reaction Status Date / Time No Known Drug Allergies Allergy Verified 08/11/21 12:51 - Social History Does the pt smoke?: No Smoking Status: Never smoker Does the pt drink ETOH?: No Does the pt have substance abuse?: No - Immunizations Immunizations are current?: No Immunizations: Other immun not current - POLST Patient has POLST: No PD ED PE NORMAL - Vitals Vital signs reviewed: Yes - General General: Alert and oriented X 3, No acute distress - HEENT HEENT: Moist mucous membranes, Pharynx benign - Neck Neck: Supple, no meningeal sign - Cardiac Cardiac: RRR - Respiratory Respiratory: No respiratory distress, Clear bilaterally - Abdomen Abdomen: Soft, Non tender, Non distended - Derm Derm: Warm and dry - Neuro Neuro: Alert and oriented X 3 Results - Vitals Vitals: Vital Signs - 24 hr 08/11/21 12:40 Temperature 36.8 C Heart Rate 93 Respiratory 16 Rate Blood Pressure 150/94 H O2 Saturation 99 Oxygen O2 Source Room air PD MEDICAL DECISION MAKING - ED course Complexity details: reviewed old records, considered differential, d/w patient ED course: Mab therapy for this patient with Covid was considered and discussed with the patient. The patient was provided with a handout: "Casirivimab plus Imdevimab fact sheet for patients, parents and caregivers" and the information within was discussed with the patient. Patient was informed of alternatives prior to receiving Mab therapy. Patient was informed that these medications are unapproved drugs that are authorized for use under emergency use authorization by the FDA. The patient will be monitored for at least 1 hour after infusion is complete. Patient received his Mab therapy. We will have him follow-up with his doctor for further care. Patient will be eligible for vaccination in 90 days. Patient counseled regarding signs and symptoms for which I believe and urgent re- evaluation would be necessary. Patient with good understanding of and agreement to plan and is comfortable going home at this time This document was made in part using voice recognition software. While efforts are made to proofread this document, sound alike and grammatical errors may occur. Departure - Departure Disposition: 01 Home, Self Care Clinical Impression: COVID Condition: Good Instructions: ED Viral Syndrome Follow-Up: your,doctor as needed [Other] Comments: Please follow-up with your doctor for further care. Return if you worsen. You did receive monoclonal antibody therapy today. You will be eligible for vaccination in 90 days. I would strongly encourage you to still receive your vaccination studies are showing that even individuals who have had Covid are at higher risk for reinfection and hospitalization if they are not vaccinated.
[2021-08-11] MEDS ORDERED: CASIRIVIMAB/IMDEVIMAB 10 ML in SODIUM CHLORIDE 0.9% 50 ML IV ONE (14:00)
[2021-08-11 16:06] VITALS: BP 122/86
== END 2021-08-11 16:07 | disposition home or self-care (01) ==
LOC: ED 12:34
DX: U07.1 COVID-19 (principal)
CPT/HCPCS: M0243; Q0244